=== PATIENT | male | born 1970 | race Caucasian/White ===

== ENCOUNTER 2016-08-31 02:18 | Observation (INO) | payer OTHER ==
[~2016-08-31] VITALS: Ht 175.3 cm; Wt 132.0 kg
[~2016-08-31 02:18] MED LIST: ASPIR-TRIN325 M1 PO; Atarax,Vistaril PO; Avelox PO; Ecotrin PO; HYDRODIURIL,ORE50 MG PO; KLOR-CON 88 MEQ PO; LIPITOR20 MG PO; LORCET PLUS PO; METOPROLOL TART25 MG PO; Minipress PO; NAPROXEN500 M1 PO; OxyCODONE PO; REMERON PO; SEROQUEL300 MG PO
[2016-08-31 03:25] LABS: BASOPHIL COUNT 0.1 K/uL (0-0.1); EOSINOPHIL (%) 3.2 % (0-5); EOSINOPHIL COUNT 0.3 K/uL (0-0.3); HEMATOCRIT 46.1 % (38.0-50.0); IMMATURE GRANULOCYTE (%) 0.6 % (0.0-0.7); IMMATURE GRANULOCYTE COUNT 0.1 K/uL; INSTRUMENT ABS NEUTROPHIL CT 4.9 K/uL; MCH 27.8 PG (29.0-34.0); MCHC 33.8 G/DL (30.0-36.0); MEAN PLAT.VOLUME 10.8 uM^3 (9.0-12.4); MONOCYTE (%) 9.3 % (3-12); MONOCYTE COUNT 0.8 K/uL (0-0.8); NEUTROPHIL (%) 61.1 % (45-76); NEUTROPHIL COUNT 4.9 K/uL (1.8-6.4); PLATELET COUNT 291 K/uL (156-360); RBC DIS.WIDTH-CV 13.2 % (11.8-14.6); RBC DIS.WIDTH-SD 39.3 % (39-53); RED BLOOD COUNT 5.62 M/uL (4.00-5.50)
[2016-08-31 03:40] LABS: CHLORIDE 103 mEq/L (99-109); POTASSIUM 3.6 mEq/L (3.7-5.4); SODIUM 139 mEq/L (136-147)
[2016-08-31 03:42] LABS: GLUCOSE 107 mg/dL (70-99)
[2016-08-31 03:43] LABS: ANION GAP 10 MEQ/L (2-14)
[2016-08-31 03:44] LABS: TOTAL BILIRUBIN 0.3 mg/dL (0.0-1.0)
[2016-08-31 03:45] LABS: ALKALINE PHOSPHATASE 59 IU/L (3-129)
[2016-08-31 03:46] LABS: GFR ESTIMATE (CALCULATED) > 59 mL/min/
[2016-08-31 03:47] LABS: UREA NITROGEN (BUN) 22 mg/dL (9-23)
[2016-08-31 03:52] LABS: TROP-I INTERPRETATION NEGATIVE; TROPONIN-I < 0.01 ng/mL (0.0-0.30)
[2016-08-31 09:53] VITALS: BP 172/91
[2016-08-31] MEDS ORDERED: HYDROCHLOROTHIA25 MG PO (12:23)
[2016-08-31] MEDS ORDERED: REMERON45 MG PO (12:23)
[2016-08-31] MEDS ORDERED: ATARAX,VISTARIL50 MG PO (12:24)
[2016-08-31] MEDS ORDERED: ASPIR 8181 M1 PO ×2 (12:25→12:36)
[2016-08-31] MEDS ORDERED: ARTIFICIAL TEAR15 M1 BOTH EYES (12:26)
[2016-08-31] MEDS ORDERED: MINIPRESS5 MG PO (12:26)
[2016-08-31] MEDS ORDERED: VITAMIN D31000 UNIT PO (12:27)
[2016-08-31] MEDS ORDERED: ZYRTEC10 M2 PO (12:27)
[2016-08-31] MEDS ORDERED: LIPITOR20 MG PO (12:27)
[2016-08-31] MEDS ORDERED: 24 HOUR ALLER15.8 ML BOTH NARES (12:27)
[2016-08-31] MEDS ORDERED: ZESTRIL40 MG PO (12:28)
[2016-08-31] MEDS ORDERED: ZEASORB-AF70 G1 TP (12:28)
[2016-08-31] MEDS ORDERED: RETIN A TP (12:29)
[2016-08-31] MEDS ORDERED: OMEPRAZOLE20 MG PO (12:29)
[2016-08-31] MEDS ORDERED: WELLBUTRIN SR150 MG PO (12:30)
[2016-08-31] MEDS ORDERED: UREA198.6 GM TP (12:30)
[2016-08-31] MEDS ORDERED: BUSPAR10 MG PO (12:31)
[2016-08-31] MEDS ORDERED: ALEVE220 M2 PO (12:33)
[2016-08-31 15:12] VITALS: BP 163/76
[2016-08-31 21:00] VITALS: BP 145/84
[2016-08-31 23:09] VITALS: BP 119/63
[2016-08-31 23:09] LABS: CHLORIDE 105 mEq/L (99-109)
[2016-08-31 23:10] LABS: POTASSIUM 2.9 mEq/L (3.7-5.4); PROTHROMBIN TIME 10.1 (9.2-11.2); PTT 26.5 (25-32); SODIUM 138 mEq/L (136-147)
[2016-08-31 23:11] LABS: GLUCOSE 148 mg/dL (70-99)
[2016-08-31 23:13] LABS: ANION GAP 12 MEQ/L (2-14)
[2016-08-31 23:15] LABS: GFR ESTIMATE (CALCULATED) > 59 mL/min/
[2016-08-31 23:16] LABS: UREA NITROGEN (BUN) 20 mg/dL (9-23)
[2016-08-31 23:19] LABS: TROP-I INTERPRETATION NEGATIVE; TROPONIN-I < 0.01 ng/mL (0.0-0.30)
[2016-09-01 04:56] VITALS: BP 90/56
[2016-09-01 07:15] VITALS: BP 105/59
[2016-09-01 07:45] LABS: HEMATOCRIT 38.1 % (38.0-50.0); MCH 28.5 PG (29.0-34.0); MCHC 34.4 G/DL (30.0-36.0); MCV 82.8 FL (86-99); MEAN PLAT.VOLUME 11.2 uM^3 (9.0-12.4); PLATELET COUNT 244 K/uL (156-360); RBC DIS.WIDTH-CV 13.2 % (11.8-14.6); RBC DIS.WIDTH-SD 39.8 % (39-53)
[2016-09-01 08:01] LABS: ANION GAP 10 MEQ/L (2-14); CHLORIDE 105 MEQ/L (99-109); GFR ESTIMATE (CALCULATED) > 59 mL/min/; GLUCOSE 93 mg/dL (70-99); POTASSIUM 3.9 MEQ/L (3.7-5.4); SAMPLE HEMOLYSIS CHECK 0; SAMPLE ICTERIC CHECK 0; SAMPLE LIPEMIA CHECK 0; SODIUM 141 MEQ/L (136-147); UREA NITROGEN (BUN) 17 mg/dL (9-23)
== END 2016-09-01 10:16 | disposition home or self-care (01) ==
LOC: EME 02:18 → EDOF 08:19 → 5WEST 09:49 → 4EAST 22:59
PROVIDERS: Emergency Medicine; Hospitalist; Internal Medicine
DX: R51 Headache (principal); R42 Dizziness and giddiness; M54.2 Cervicalgia; H53.8 Other visual disturbances; I48.92 Unspecified atrial flutter; I10 Essential (primary) hypertension; K21.9 Gastro-esophageal reflux disease without esophagitis; F43.10 Post-traumatic stress disorder, unspecified; E66.9 Obesity, unspecified; Z68.41 Body mass index [BMI] 40.0-44.9, adult
CPT/HCPCS: 70496; 70498; 80048; 80048 91; 80053; 83880; 84484; 85025; 85027; 85610; 85730; 93005; 99281; 99285; G0378; J0780; J1200; J1885; J7030; Q0177